=== PATIENT | female | born 1990 | race Caucasian/White ===

== ENCOUNTER → 2016-04-30 | Outpatient (CLI) | payer OTHER ==
[~2016-04-30] MED LIST: BACT800T5 PO; INSUH10VL SC; PERCOCET PO; XARE20TA PO; birth control PO; flexeril PO
--- NOTE | 2016-05-02 08:57 | ECGEPIP ---
Stationary ECG Study [facility] Test Date: 2016-04-30 Pat Name: JOSUE SWANN Department: Room: - Gender: F Manager Health: : 1990 Requested By: DANYEL Draper Order Number: [id number] Reading MD: Keny Hampton Measurements Intervals [place] Rate: 72 P: 34 [place]: 151 QRS: 46 QRSD: 90 T: 36 QT: 383 QTc: 421 Interpretive Statements Normal sinus rhythm Low limb voltage with slow precordial R-wave progression and persistent S waves V5 and V6; body habitus versus coronary disease. No change from 05/13/14 Electronically Signed On 05-02-2016 8:57:02 EST by Keny Hampton
== END ==
LOC: M EKG 14:28
PROVIDERS: ATTEND Student in an Organized Health Care Education/Training Program
DX: O24.011 Pre-existing type 1 diabetes mellitus, in pregnancy, first trimester (principal); Z79.4 Long term (current) use of insulin; Z3A.13 13 weeks gestation of pregnancy

== ENCOUNTER → 2016-05-13 | Outpatient (CLI) | payer OTHER ==
--- NOTE | 2016-05-13 10:28 | ECGEPIP ---
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
[2016-05-13 16:49] LABS: ALBUMIN 3.2 GM/DL (3.2-5.2); ALBUMIN/GLOBULIN RATIO 0.89 (1.00-1.93); ALKALINE PHOSPHATASE 54 U/L (45-117); ALT/SGPT 13 U/L (12-78); ANION GAP 10 MEQ/L (8-16); AST/SGOT 13 U/L (15-37); BILIRUBIN,TOTAL 0.2 MG/DL (0.2-1.0); BLOOD UREA NITROGEN 9 MG/DL (7-18); CALCIUM LEVEL 8.3 MG/DL (8.5-10.1); CARBON DIOXIDE LEVEL 24 MEQ/L (21-32); CHLORIDE LEVEL 107 MEQ/L (98-107); CREATININE FOR GFR 0.49 MG/DL (0.55-1.02); GLOMERULAR FILTRATION RATE > 60.0 (>60); GLUCOSE, FASTING 129 MG/DL (70-105); POTASSIUM SERUM 3.9 MEQ/L (3.5-5.1); SODIUM LEVEL 141 MEQ/L (136-145); TOTAL PROTEIN 6.8 GM/DL (6.4-8.2)
== END ==
LOC: M EKG 08:16
PROVIDERS: ATTEND Student in an Organized Health Care Education/Training Program
DX: R94.31 Abnormal electrocardiogram [ECG] [EKG] (principal)

== ENCOUNTER → 2016-05-19 | Outpatient (REF) | payer OTHER | LOC: M LAB 12:05 | PROVIDERS: ATTEND Student in an Organized Health Care Education/Training Program | DX: E10.9 Type 1 diabetes mellitus without complications (principal); Z96.41 Presence of insulin pump (external) (internal) ==